=== PATIENT | female | born 1935 | race Caucasian/White ===

== ENCOUNTER 2020-01-07 09:55 | Inpatient (IN) | payer MEDICARE ==
[2020-01-07] MEDS ORDERED: Succinylcholine Chloride 20 MG/ML 10 ml SYRINGE FS ONE (10:21)
[2020-01-07] MEDS ORDERED: niCARdipine 20MG In NaCl 0 MG/0 ML BAG ONE (10:23)
[2020-01-07] MEDS ORDERED: niCARdipine 20MG In NaCl 20 MG/200 ML BAG ONE (10:24)
[2020-01-07 10:26] LABS: INR-International Normal Ratio 1.2; PTT 34.3 sec (22.9-36.1)
[2020-01-07 10:30] LABS: Hemoglobin 10.5 g/dL (12.0-16.0); Mean Corpuscular HGB CONC 32.6 g/dL (32.0-36.0); Mean Corpuscular Hemoglobin 32.9 pg (27.0-31.0); Platelet Count 63 thou/uL (130-400); RBC Distribution Width 16.5 % (11.5-14.5); Red Blood Cell (RBC) Count 3.19 mill/uL (4.20-5.40); White Blood Cell (WBC) Count 44.4 thou/uL (4.8-10.8)
--- NOTE | 2020-01-07 10:30 | CT ---
EXAM: Brain CT scan Without contrast: HISTORY: Level One stroke right-sided weakness COMPARISON: 12/16/2019 FINDINGS: Atrophy and chronic white matter ischemic change. Large 4.4 cm diameter intraparenchymal hematoma in the left posterior basal ganglia with blood extend ing into the left lateral ventricle and intraventricular system. Right sphenoid sinus mucosal disease. IMPRESSION: Extensive intraparenchymal hemorrhage with extension into the left lateral ventricle. Findings discussed with Dr. Villafuerte in the emergency room at 10:20 AM CODE CR
[2020-01-07] MEDS ORDERED: Fentanyl 100 MCG/2 ML VIAL ONE (10:39)
[2020-01-07 10:40] LABS: ALT (SGPT) 9 U/L (8-55); AST (SGOT) 21 U/L (5-34); Albumin 3.7 g/dL (3.4-4.8); Alkaline Phosphatase 66 U/L (40-110); Anion Gap 13 mmol/L (10-20); BUN (Urea Nitrogen) 13 mg/dL (9.8-20.1); Bilirubin, Total 0.9 mg/dL (0.2-1.2); CK (CPK) Less than 9 U/L (29-168); Calc. Creatinine Clearance 0 mL/min (70-130); Carbon Dioxide 23 mmol/L (23-31); Chloride 105 mmol/L (98-107); Estimated GFR-MDRD Greater than 90; Glucose 133 mg/dL (83-110); Protein, Total 5.7 g/dL (6.0-8.3); Sodium 137 mmol/L (136-145)
[2020-01-07] MEDS ORDERED: [UNRECOGNIZED DRUG - OTHER] IV SCH (10:45)
[2020-01-07] MEDS ORDERED: HUM PROTHROMBIN CPLX IV SCH (10:45)
[2020-01-07] MEDS ORDERED: HUMAN PROTHROMBIN COMPLX IV SCH (10:45)
[2020-01-07] MEDS ORDERED: Fentanyl 20 mcg/ml (100 ml CADD) IV PRN (10:46)
[2020-01-07 10:47] LABS: Band 1 % (5-11); Lymphocytes 97 % (21-51); MDiff Complete? YES; Neutrophil 2 % (42-75); Platelet Morphology Comment Appears Decreased; RBC Morphology Normal; Reflex for Review?? NO
--- NOTE | 2020-01-07 10:54 | RAD ---
XR Chest 1 View Portable HISTORY: Respiratory failure COMPARISON: 12/19/2019 FINDINGS: There is been interval placement of endotracheal tube with tip just below the level of the clavicular heads. A nasogastric tube can be traced into the stomach. The heart size is stable. There is a small left pleural effusion with consolidation/atelectatic change in the left lung base. No pneumotho races are seen. There are postop changes and metallic hardware in the lumbar spine.
[2020-01-07 11:11] LABS: Actual Bicarbonate (HCO3a) 22.1 mEq/L (22-28); Analyzer IN Cardio ER; Base Excess (BEa) -1.2 mEq/L (-2.0 to +3.0); CO2 Tension 32.8 mmHg (35.0-45.0); Calcium, Ionized (arterial) 1.12 mmol/L (1.12-1.30); Carboxyhemoglobin (COHb) 0.5 gm% (0.0-3.0); Hemoglobin (Hb) 13.1 g/dL (12.0-16.0); O2 Tension (PaO2), arterial 112.6 mmHg (> 60.0); Potassium - ABG Lab 4.03 mmol/L (3.70-5.30); pH, Arterial 7.45 (7.35-7.45)
[2020-01-07 11:25] LABS: Puncture Site LBA
[2020-01-07] MEDS ORDERED: Piperacillin/Tazobactam 3.375 GM VIAL ONE (11:54)
[2020-01-07 12:03] LABS: Bilirubin Negative (Negative); Blood, Urine Negative (Negative); Clarity Clear (Clear); Glucose, Urine (Dipstick) Normal (Negative); Ketone, Urine Trace mg/dL (Negative); Leukocyte Negative Leu/uL (Negative); Nitrite Negative (Negative); Protein, Urine (Dipstick) 20 mg/dL (Neg-Trace); Specific Gravity, Urine 1.014 (1.002-1.036); Urobilinogen Normal mg/dL (Less than 2); pH, Urine 6.5 (5.0-9.0)
[2020-01-07] MEDS ORDERED: Electrolyte Replacement Protoc 1 EACH EACH IVPB PRN (15:05)
[2020-01-07] MEDS ORDERED: Acetaminophen 325 MG TAB PO PRN (15:06)
[2020-01-07] MEDS ORDERED: niCARdipine 25 MG in Sodium Chloride 0.9% 250 ML 240 ML IVPB PRN (15:06)
[2020-01-07] MEDS ORDERED: Propofol BOLUS 1,000 MG/100 ML VIAL IV PRN (15:10)
[2020-01-07] MEDS ORDERED: fentaNYL Citrate/PF 2,000 MCG in Sodium Chloride 0.9% 60 ML IV SCH (15:10)
[2020-01-07] MEDS ORDERED: Morphine 2 MG/ML VIAL SLOW IVP PRN (15:10)
[2020-01-07] MEDS ORDERED: DISCONTINUE PREVIOUS NARCOTIC PAIN MEDICATIONS AND BENZODIAZEPINES FS SCH (15:10)
[2020-01-07] MEDS ORDERED: Fentanyl BOLUS 250 ML IVPB PRN (15:10)
[2020-01-07] MEDS ORDERED: Propofol 1,000 MG/100 ML VIAL IV PRN (15:10)
[2020-01-07] MEDS ORDERED: Lorazepam 2 MG/ML VIAL SLOW IVP PRN (15:10)
[2020-01-07] MEDS ORDERED: Vecuronium 10 MG VIAL IV SCH (15:15)
[2020-01-07] MEDS ORDERED: Ventilator Sedation Protocol 1 EACH FS SCH (15:15)
--- NOTE | 2020-01-07 15:44 | CON ---
DATE OF CONSULTATION: HISTORY OF PRESENT ILLNESS: Khushbu juarez is an 84-year-old female, presented to the ER with hypertension, atrial fibrillation, right-sided weakness 7:30 in the morning. [facility] CT revealed a large left intraparenchymal hemorrhage. She is intubated in the ICU. ER physician told me that she apparently could have aspirated. Therefore, no other additional information is available at this time. Though she has been in this institution several times, in fact she was recently discharged by a physician from either one of the facilities with discharge diagnoses of long list of medical problems including CLL; hypertension; pacemaker; diabetes; depression; dementia; atrial fibrillation, chronic; and pancytopenia. She was apparently transferred to [facility]. There were no family members present to get additional information. MEDICATIONS: Her list of medicines from home unknown, but the medicines from the jail are outlined below, which include: 1. Metformin 500 twice a day. 2. Protonix 40. 3. Mirtazapine 30. 4. Lopressor 12.5. 5. Nasal spray. 6. Pepcid. 7. Prozac 10. 8. Eliquis 2.5. 9. Norvasc 2.5. ALLERGIES: APPARENTLY, NONE. SOCIAL HISTORY: History of tobacco, alcohol, none at this time. IMAGING STUDIES: She had a recent CT done of her chest, unclear why this was done. There was found to have extensive thoracic lymph nodes along with splenomegaly because of the right chest mass. Extensive axillary mediastinal and supraclavicular lymph nodes were noted. PAST SURGICAL HISTORY: Recent surgery for hip, pacemaker, hysterectomy, left knee. PHYSICAL EXAMINATION: GENERAL: Unresponsive on the vent. VITAL SIGNS: Pulse 87, blood pressure 100/60, sats 100%, respiratory rate 18. CHEST: No wheezing. No crackles. CARDIAC: Normal S1, S2. No gallops. ABDOMEN: Soft. LABORATORY DATA: White count 41,000, H and H 10 and 32, platelet count is 63,000, and 97 lymphocytes. PO2 of 112, pCO2 of 32, pH of 7.44, 60%, 14, and 460 tidal volume. Lytes are normal. IMPRESSION: 1. Extensive left parenchymal hemorrhage, extension into the left ventricle. 2. Chronic lymphocytic leukemia with severe thrombocytopenia. 3. Advanced age. 4. Dementia. 5. Atrial fibrillation, long-term anticoagulation. 6. Recent hip surgery done. PLAN: Await input from Neurosurgery. They can discuss prognosis, eventually outcome from the bleed with the family members. I think her overall prognosis is grave. A chest x-ray showed a questionable left-sided pleural effusion. IMPRESSION: Intraparenchymal hemorrhage, chronic lymphocytic leukemia, thrombocytopenia, atrial fibrillation. PLAN: Vent support. Discussed with family. Prognosis is poor. 45 minutes of critical care time. Job ID: [id number]
[2020-01-07 16:40] LABS: SARS-CoV-2 NAA Rapid Test Not Detected (NotDetected)
--- NOTE | 2020-01-07 17:37 | CT ---
EXAM: BRAIN CT WITHOUT IV CONTRAST: 01/07/20 HISTORY: Follow-up hemorrhage. COMPARISON: 01/07/20. FINDINGS: Again noted is an intracerebral hemorrhage in the left posterolateral basal ganglia region which appe ars to be slightly larger and have slightly more edema and mass effect with approximately 0.2 cm of m idline shift to the right. Stable intraventricular hemorrhage. No new source of hemorrhage. IMPRESSION: Very slightly larger left intracerebral hemorrhage. Stable intraventricular hemorrhage. POS: RRE
--- NOTE | 2020-01-07 17:42 | HP ---
PRIMARY CARE PHYSICIAN: Unknown. CHIEF COMPLAINT: Right-sided weakness. HISTORY OF PRESENT ILLNESS: The patient is an 84-year-old female from [facility] with past medical history of dementia, hypertension, and atrial fibrillation. She presented with right-sided weakness and was last seen normal this morning at 7: 30. She had just recently been discharged to half-way after hip surgery. Today during an emergent CT, they discovered a large left intraparenchymal hemorrhage. She had been using oral anticoagulants at home for atrial fibrillation. While in the ER, she began to aspirate and was then intubated for airway protection. Cardene was started for blood pressure control. Neurosurgery was consulted due to discover hemorrhage and Kcentra was given also while in the ER. PAST MEDICAL HISTORY: Being pulled from past medical records as the patient is intubated. Osteoporosis, dyslipidemia, chronic lymphocytic leukemia, hypertension, atrial fibrillation, type 2 diabetes. PAST SURGICAL HISTORY: Pacemaker placement, left knee replacement, left hip replacement, hysterectomy. ALLERGIES: CODEINE. MEDICATIONS: 1. Metformin 500 twice a day. 2. Protonix 40. 3. Mirtazepine 30. 4. Lopressor 12.5. 5. Nasal spray. 6. Pepcid. 7. Prozac 10. 8. Eliquis 2.5. 9. Norvasc 2.5. SOCIAL HISTORY: No history of tobacco or alcohol noted at this time. FAMILY HISTORY: Unable to obtain currently. REVIEW OF SYSTEMS: Cannot be obtained at this time, vented. PHYSICAL EXAMINATION: VITAL SIGNS: Blood pressure 141/84, pulse 70, FiO2 of 40, 99% O2 saturation. GENERAL: The patient is mainly unresponsive on the vent; however, she does withdraw from pain to the left-sided extremities and will open her eyes to her name. HEENT: Head, atraumatic and normocephalic. Eyes, upward gaze and does not follow. CHEST: No wheezing. No crackles. Currently intubated. CARDIAC: Normal S1 and S2. No gallops. No murmurs. No rubs. ABDOMEN: Soft, not distended. EXTREMITIES: Posterior tibial pulse present. No cyanosis. No edema. IMAGING STUDIES: Initial chest x-ray. Findings; there has been an interval placement of endotracheal tube with tip just below the level of the clavicular heads. NG tube penetrates into the stomach. Heart size is stable. There is a small left pleural effusion with consolidation atelectatic change in the left lung base. No pneumothoraces are seen. Postop changes in metallic hardware in the lumbar spine. Initial brain CT in the ER showed extensive intraparenchymal hemorrhage with an extension into left lateral ventricle. LABORATORY DATA: Labs show white blood cells 44.4, red blood cells 3.19, hemoglobin 10.5, hematocrit 32.2, and platelets 63. Coagulation; PT 15, INR 1.2. ABG; CO2 is 32.8, PO2 is 112.6. Chemistry; sodium 137, potassium 4.0, creatinine 0.52, GFR greater than 90, glucose 133. Troponin negative. Urine just showed trace ketones. IMPRESSION AND PLAN: Neurosurgery and Pulmonary have been consulted and their input is appreciated. Patient with extensive left parenchymal hemorrhage. We will continue to monitor her in CCU as she is on Cardene and intubated. She is scheduled for another head CT shortly to see if there is any change. Palliative care has been consulted as the prognosis is very poor for her and to help provide support for the family. Family is not at bedside to be able to discuss with currently. Discussed with Dr. Garrett who is the admitting physician. Job ID: [id number] [facility]
[2020-01-07] MEDS: Famotidine/PF 20 mg/2ml Vial SLOW IVP SCH (20:44)
--- NOTE | 2020-01-08 01:30 | CON ---
DATE OF CONSULTATION: 01/07/2020 CHIEF COMPLAINT: Right-sided weakness. HISTORY OF PRESENT ILLNESS: The patient is an 84-year-old female, who presented to the emergency department this morning following onset of right-sided weakness with finding of a large left intraparenchymal hemorrhage. The patient was last seen normal at 0730 this morning. Past medical history is pertinent for atrial fibrillation on Eliquis, hypertension, and dementia. Initially, the patient presented to the ER. She had dense right-sided hemiparesis. She subsequently underwent intubation due to aspiration. She presented with a systolic blood pressure of approximately 200 and was started on Cardene with systolic blood pressure parameter less than 160 mmHg. She was admitted to the Critical Care Unit for continued monitoring. IMPRESSION: 1. Large left intraparenchymal hemorrhage. 2. History of atrial fibrillation, on Eliquis. 3. Hypertension. 4. Leukocytosis. PLAN: Case was discussed and imaging reviewed with Dr. Longoria. Initial CT of the brain revealed findings of a large left intraparenchymal hemorrhage with intraventricular extension and effacement of the left ventricle. A repeat CT of the brain was ordered 6 hours later for re-evaluation with findings of slight increase in hemorrhage size, but no significant expansion. No neurosurgical intervention recommended at this time. Our team will continue to monitor the hemorrhage and obtain a repeat CT of the brain without contrast in the morning. Continue blood pressure control with Cardene with goal systolic less than 160 mmHg. Discussion with family should be had to determine the patient's code status. Likely the patient would do poorly with any type of surgical hemorrhage evacuation. Agree with plan for palliative care consult. Our team will continue to follow the patient. Please call for any questions or concerns. Job ID: [id number] MTDD
--- NOTE | 2020-01-08 06:56 | CT ---
PRELIMINARY REPORT/[facility]/EMERGENCY AFTER HOURS PROCEDURE: PROCEDURE: CT Head without Contrast . HISTORY: Follow-up intracranial hemorrhage. TECHNIQUE: Axial images were performed without the administration of IV contrast with or without mult iplanar reformations . COMPARISON: 01/07/2020. FINDINGS: Unchanged LEFT intraparenchymal hemorrhage involving basal ganglia with adjacent edema. Maximum cros s-sectional dimensions of the hemorrhage measured 5.3 x 3.6 cm. Unchanged mild interventricular extension with hemorrhage seen in the posterior horns of both lateral ventricles. Moderate effacement of the LEFT lateral ventricle similar to previous study. Unchanged 4 mm midline shift of the septum pellucidum to the RIGHT. No other acute change identified. IMPRESSION: Stable LEFT intraparenchymal cerebral hemorrhage with interventricular extension and minimal midline shift to the RIGHT. ELECTRONICALLY SIGNED BY: Eloy Dobson MD Jan 08, 2020 4:58:49 AM CDT This report is intended for review by the ordering physician only, in accordance of law. If you recei ve this report in error, please call [facility] at [phone]. FINAL REPORT EMERGENCY AFTER HOURS CT BRAIN WITHOUT CONTRAST: COMPARISON: 01/07/2020. FINDINGS/IMPRESSION: I agree with the findings and impression given in the preliminary report per [facility] physici an. There is a large left stable basal ganglia hemorrhage with extension into the lateral ventricles. POS: NADJA
--- NOTE | 2020-01-08 07:29 | PRG ---
DATE OF SERVICE: 01/08/2020 SUBJECTIVE: Khushbu Mei remains intubated on the vent. No sedation. OBJECTIVE: VITAL SIGNS: Pulse is 70, blood pressure 144/87, sats 100%, respiratory rate 17. NEUROLOGICAL: She is encephalopathic. CHEST: Decreased breath sounds. No wheezing. CARDIAC: Normal S1 and S2. No gallops. ABDOMEN: No mass. ASSESSMENT: Extensive left parenchymal hemorrhage, respiratory failure, cachexia, leukocytosis, underlying chronic lymphocytic leukemia with atrial fibrillation. PLAN: At this stage, input from Neurosurgery, she is clearly not weanable. Palliative Care should be consulted. We will follow. One-half hour of critical time. Job ID: [id number]
[2020-01-08 07:43] LABS: Actual Bicarbonate (HCO3a) 17.9 mEq/L (22-28); Base Excess (BEa) -5.2 mEq/L (-2.0 to +3.0); CO2 Tension 26.3 mmHg (35.0-45.0); Carboxyhemoglobin (COHb) 0.3 gm% (0.0-3.0); Hemoglobin (Hb) 8.4 g/dL (12.0-16.0); O2 Tension (PaO2), arterial 81.8 mmHg (> 60.0); Potassium - ABG Lab 3.74 mmol/L (3.70-5.30); pH, Arterial 7.45 (7.35-7.45)
[2020-01-08 07:47] LABS: ALV-art Gradient 170.525 (0-20); Puncture Site LRA
[2020-01-08 08:04] LABS: ALT (SGPT) 7 U/L (8-55); AST (SGOT) 34 U/L (5-34); Albumin 3.5 g/dL (3.4-4.8); Alkaline Phosphatase 58 U/L (40-110); Anion Gap 21 mmol/L (10-20); BUN (Urea Nitrogen) 17 mg/dL (9.8-20.1); Calc. Creatinine Clearance 53 mL/min (70-130); Calcium 8.5 mg/dL (7.8-10.44); Carbon Dioxide 14 mmol/L (23-31); Chloride 108 mmol/L (98-107); Estimated GFR-MDRD Greater than 90; Globulin 2.3 g/dL (2.4-3.5); Glucose 110 mg/dL (83-110); Magnesium 1.6 mg/dL (1.6-2.6); Potassium 5.5 mmol/L (3.5-5.1); Protein, Total 5.8 g/dL (6.0-8.3); Sodium 137 mmol/L (136-145)
[2020-01-08 09:07] LABS: Hemoglobin 8.6 g/dL (12.0-16.0); Mean Corpuscular HGB CONC 33.1 g/dL (32.0-36.0); Mean Corpuscular Hemoglobin 33.6 pg (27.0-31.0); Mean Platelet Volume 9.9 fL (7.4-10.4); Platelet Count 46 thou/uL (130-400); RBC Distribution Width 16.2 % (11.5-14.5); Red Blood Cell (RBC) Count 2.55 mill/uL (4.20-5.40); White Blood Cell (WBC) Count 24.6 thou/uL (4.8-10.8)
[2020-01-08] MEDS: FLUoxetine HCl 10 MG CAP PO SCH (09:21)
[2020-01-08] MEDS: Famotidine/PF 20 mg/2ml Vial SLOW IVP SCH ×2 (09:21→20:29)
[2020-01-08 09:40] LABS: Lymphocytes 97 % (21-51); MDiff Complete? YES; Neutrophil 3 % (42-75); Platelet Morphology Comment Appears Decreased; Polychromasia SLIGHT = 2-3 cells (100X) (0-2/hpf)
[2020-01-08] MEDS ORDERED: Magnesium 2 GM/50 ML 2 GM in Premix Bag 1 BAG IVPB SCH (10:00)
--- NOTE | 2020-01-08 11:09 | PRG ---
DATE OF SERVICE: 01/08/2020 This is a 30-minute initial visit note, in which 30 minutes were spent reviewing the imaging record, evaluation, and examination of patient, and formulation of plan. Greater than 50% time was spent in counseling on Khushbu Mei. Ms. Mei is an 84-year-old woman admitted for large left thalamic and temporal lobe 6 x 5 cm intraparenchymal hemorrhage with a systolic blood pressure over 200. She was initiated on Cardene. She has had a very poor exam. She has leukocytosis. This morning, on exam, her eyes are somewhat fixated in an upgaze position. She localizes in the left upper and left lower extremity weakly and is flaccidly paralytic in the right side. She remains intubated. I recommended against any intervention in this patient. She has a very poor prognosis on Eliquis and given her age, the size of the hemorrhage, the dominant hemisphere, and nature of the location, I would recommend palliative care. Job ID: [id number]
[2020-01-08 14:32] VITALS: BMI 18.8
[2020-01-08] MEDS ORDERED: Acetaminophen 650 MG/20.3 ML UDCUP PO PRN (15:30)
[2020-01-08] MEDS ORDERED: Sodium Chloride 0.9% 1,000 ML IV SCH (19:15)
[2020-01-08] MEDS ORDERED: Gabapentin 100 MG CAP PO SCH (21:00)
[2020-01-08] MEDS ORDERED: Atorvastatin Calcium 10 MG TAB PO SCH (21:00)
--- NOTE | 2020-01-09 07:14 | PDOC.HOSPP ---
- Subjective Encounter Date: 01/08/20 Encounter Time: 10:30 Subjective: pt intubated not following commands. - Objective Vital Signs & Weight: Vital Signs (12 hours) Temp Pulse Resp BP Pulse Ox 01/09/20 06:00 14 01/09/20 04:00 21 H 01/09/20 03:00 99.4 F 01/09/20 02:52 77 121/59 L 01/09/20 02:00 19 01/09/20 00:00 20 01/08/20 23:00 99.9 F H 01/08/20 22:00 17 01/08/20 21:46 75 122/62 01/08/20 20:00 16 01/08/20 19:55 97 Weight Admit Weight 106 lb Weight 108 lb 14.534 oz Most Recent Monitor Data Heart Rate from ECG 71 NIBP 118/53 NIBP BP-Mean 74 Respiration from ECG 21 SpO2 98 I&O: 01/08/20 01/09/20 01/10/20 06:59 06:59 06:59 Intake Total 279.9 473 Output Total 835 813 Balance -555.1 -340 Result Diagrams: 01/08/20 08:43 01/08/20 07:22 Additional Labs: Accuchecks 01/08/20 16:08 POC Glucose 123 H Hospitalist ROS - Review of Systems Other: unable to obtain - Medication Medications: Active Medications Generic Name Dose Route Start Last Admin Trade Name Freq PRN Reason Stop Dose Admin Acetaminophen 650 mg 01/08/20 15:30 01/08/20 15:28 Tylenol Elixir PO 650 mg Q6H PRN Administration Fever > 101 or Headache Atorvastatin Calcium 10 mg 01/08/20 21:00 01/08/20 20:29 Lipitor PO 10 mg HS YANICK Administration Famotidine 20 mg 01/07/20 21:00 01/08/20 20:29 Pepcid SLOW IVP 20 mg Q12HR YANICK Administration Fluoxetine HCl 10 mg 01/08/20 09:00 01/08/20 09:21 Prozac PO 10 mg DAILY YANICK Administration Gabapentin 100 mg 01/08/20 21:00 01/08/20 20:29 Neurontin PO 100 mg QPM YANICK Administration Nicardipine HCl 25 mg/ Sodium 250 mls @ 0 mls/hr 01/07/20 15:06 01/07/20 20: 44 Chloride IVPB 250 mls INF PRN Administration SBP > 140 Protocol Titrate Fentanyl Citrate 2,000 mcg/ 100 mls @ 0 mls/hr 01/07/20 15:10 01/08/20 22:12 Sodium Chloride IV 02/06/20 15:10 100 mls INF YANICK Administration Protocol Per Protocol Sodium Chloride 1,000 mls @ 50 mls/hr 01/08/20 19:15 01/08/20 20:28 Normal Saline 0.9% IV 1,000 mls .Q20H YANICK Administration Sodium Chloride 10 ml 01/07/20 21:00 01/08/20 20:29 Flush - Normal Saline IVF 10 ml Q12HR YANICK Administration - Exam Neck: negative: supple, symmetric, no JVD, no thyromegaly, no lymphadenopathy, no carotid bruit, JVD Heart: negative: RRR, no murmur, no gallops, no rubs, normal peripheral pulses, irregular, diminshed peripheral pulses, murmur present, II/IV, III/IV Respiratory: negative: CTAB, no wheezes, no rales, no ronchi, normal chest expansion, no tachypnea, normal percussion, rales, rhonchi, tachypneic, wheezes Gastrointestinal: negative: soft, non-tender, non-distended, normal bowel sounds , no palpable masses, no hepatomegaly, no splenomegaly, no bruit, no guarding, no rigidity, tender to palpation, distended, diminished bowl sounds, voluntary guarding Musculoskeletal - other findings: left hip bruise Hosp A/P (1) Acute respiratory failure with hypoxia Code(s): J96.01 - ACUTE RESPIRATORY FAILURE WITH HYPOXIA Status: Acute (2) Hemorrhagic stroke Code(s): I61.9 - NONTRAUMATIC INTRACEREBRAL HEMORRHAGE, UNSPECIFIED Status: Acute (3) Atrial fibrillation Code(s): I48.91 - UNSPECIFIED ATRIAL FIBRILLATION Status: Acute (4) CLL (chronic lymphocytic leukemia) Code(s): C91.10 - CHRONIC LYMPHOCYTIC LEUK OF B-CELL TYPE NOT ACHIEVE REMIS Status: Acute (5) Closed fracture of left hip requiring operative repair with routine healing Code(s): S72.002D - FX UNSP PART OF NK OF L FEMR, SUBS FOR CLOS FX W ROUTN HEAL Status: Acute (6) Diabetes mellitus Code(s): E11.9 - TYPE 2 DIABETES MELLITUS WITHOUT COMPLICATIONS Status: Chronic (7) Hyperlipidemia Code(s): E78.5 - HYPERLIPIDEMIA, UNSPECIFIED Status: Chronic - Plan pt's overall prognosis is poor. she recently had a left hip surgery and now comes in with right side weakness and was found to have a hemorrhagic stroke. pt 's repeat ct brain no significant changes. will call family for update.
[2020-01-09 07:37] LABS: Actual Bicarbonate (HCO3a) 19.8 mEq/L (22-28); CO2 Tension 31.5 mmHg (35.0-45.0); Calcium, Ionized (arterial) 1.15 mmol/L (1.12-1.30); Potassium - ABG Lab 3.71 mmol/L (3.70-5.30); pH, Arterial 7.42 (7.35-7.45)
[2020-01-09 07:40] VITALS: BP 139/59
[2020-01-09] MEDS: FLUoxetine HCl 10 MG CAP PO SCH (08:18)
[2020-01-09] MEDS: Famotidine/PF 20 mg/2ml Vial SLOW IVP SCH (08:18)
[2020-01-09 08:19] LABS: O2 Tension (PaO2), arterial 53.1 mmHg (> 60.0)
[2020-01-09 08:20] LABS: ALV-art Gradient 121.425 (0-20); Puncture Site RRA
[2020-01-09 08:42] VITALS: TEMP 98.4
--- NOTE | 2020-01-09 09:17 | PRG ---
DATE OF SERVICE: 01/09/2020 OBJECTIVE: VITAL SIGNS: Temperature 98, pulse 100, blood pressure 128/59, saturations are 98%. CHEST: Reveals no wheezing or crackles. CARDIAC: Normal S1, S2. No gallops. ABDOMEN: Soft. NEUROLOGIC: She is unresponsive. LABORATORY DATA: White count 24,000. Her pO2 was only 53, pCO2 of 31, pH 7.42, on 30% FiO2. No x-ray being ordered. ASSESSMENT AND PLAN: Large thalamic bleed, respiratory failure, advanced age, atrial fibrillation, and leukocytosis. Son is going to come today, more than likely extubation. Continue supportive care. We will follow while in the ICU. One-half hour of critical care time. Job ID: [id number]
--- NOTE | 2020-01-09 10:35 | PRG ---
DATE OF SERVICE: 01/09/2020 Ms. Mei remains neurologically unchanged. She has upward gaze preference. She is intubated. She localizes weakly in the left upper and left lower extremities and is flaccid in the right upper and right lower extremities due to her large left thalamic and temporal and parietal hemorrhage presumably due to hypertension. She has been made DNR. There is no role for neurosurgical intervention. Job ID: [id number]
[2020-01-09] MEDS ORDERED: Morphine 2 MG/ML VIAL SLOW IVP PRN (10:48)
[2020-01-09] MEDS ORDERED: Lorazepam 2 MG/ML VIAL SLOW IVP PRN (10:51)
[2020-01-09] MEDS ORDERED: Scopolamine 1.5 mg/72 hour Patch TOP SCH (11:30)
--- NOTE | 2020-01-09 23:28 | DIS ---
DATE OF ADMISSION: 01/07/2020 DATE OF DISCHARGE: 01/09/2020 DISCHARGE DIAGNOSES: 1. Hemorrhagic stroke. 2. Acute hypoxic respiratory failure. 3. Aspiration pneumonia. 4. Chronic lymphocytic leukemia. 5. Thrombocytopenia. 6. Leukocytosis from the chronic lymphocytic leukemia. 7. Atrial fibrillation. 8. Recent hip surgery. HOSPITAL COURSE: The patient is an 84-year-old female who initially presented to the hospital with stroke-like symptoms on the right side. She was noted to have possible aspiration and became respiratory smith unstable. She was intubated in the ER and CT head indicated hemorrhagic stroke to her to the left index intracerebral area. The patient at this time was seen by Neurosurgery and also Pulmonology. She had a repeat scan, which was stable. This was discussed with the patient's family, who recommended against any other further intervention at this time. The patient was made comfort measures and she was extubated. She at 1150 hours comfortably. Condolences were sent to the family. Job ID: [id number]
== END 2020-01-09 11:50 | disposition expired | DRG 64 ==
LOC: ERS 09:55 → CCU 10:46
PROVIDERS: ADMIT Internal Medicine; ATTEND Internal Medicine
PROC: 0BH17EZ Insertion of Endotracheal Airway into Trachea, Via Natural or Artificial Opening (ICD-10-PCS; principal; 2020-01-07)
PROC: 5A1945Z Respiratory Ventilation, 24-96 Consecutive Hours (ICD-10-PCS; 2020-01-07)
DX: I61.4 Nontraumatic intracerebral hemorrhage in cerebellum (principal); J96.01 Acute respiratory failure with hypoxia; J69.0 Pneumonitis due to inhalation of food and vomit; G81.91 Hemiplegia, unspecified affecting right dominant side; I48.20 Chronic atrial fibrillation, unspecified; C91.10 Chronic lymphocytic leukemia of B-cell type not having achieved remission; D61.818 Other pancytopenia; R64 Cachexia; G93.40 Encephalopathy, unspecified; Z68.1 Body mass index [BMI] 19.9 or less, adult; Z66 Do not resuscitate; Z51.5 Encounter for palliative care; I10 Essential (primary) hypertension; R40.2362 Coma scale, best motor response, obeys commands, at arrival to emergency department; R40.2142 Coma scale, eyes open, spontaneous, at arrival to emergency department; R40.2212 Coma scale, best verbal response, none, at arrival to emergency department; I61.5 Nontraumatic intracerebral hemorrhage, intraventricular; E11.9 Type 2 diabetes mellitus without complications; F32.9 Major depressive disorder, single episode, unspecified; F03.90 Unspecified dementia, unspecified severity, without behavioral disturbance, psychotic disturbance, mood disturbance, and anxiety; M81.0 Age-related osteoporosis without current pathological fracture; Z90.710 Acquired absence of both cervix and uterus; Z95.0 Presence of cardiac pacemaker; Z79.01 Long term (current) use of anticoagulants; Z79.84 Long term (current) use of oral hypoglycemic drugs; Z79.899 Other long term (current) drug therapy
CPT/HCPCS: 31500; 36415; 36416; 51702; 70450; 71045; 80053; 81003; 82550; 82805; 83735; 84484; 85025; 85610; 85730; 87040; 87086; 93005; 94002; 94003; 96365; 96366; 96368; 96375; 99292; C9132; J2060; J2543; J3010; J3475; J3490; J7050; S0028; U0002